=== PATIENT | male | born 1950 | race African-American/Black ===

== ENCOUNTER 2016-12-15 16:35 | Emergency (ER) | payer MEDICARE, OTHER ==
[~2016-12-15 16:35] MED LIST: ALLEGRA-D12 HOUR PO; ALLEGRA-D24 HOUR PO; AMB10 PO; ASAB PO; ATV1 PO; CREON24000 UNT PO; DIL4TAB PO; HALF81 PO; HCTZ25B PO; HYDROCHLOROT25 MG PO; KLONO1 PO; KLONO5 PO; KLONOPIN WAF0.25 MG PO; KLOR-CON 1010 MEQ PO; LEVOTHYROXIN50 MCG PO; LORCET PO; LORTAB10 PO; LOTE40 PO; LYRICA50 PO; MAGOX4 PO; METHOC750B PO; NORCO1 TA2 PO; NORCO1 TAB PO; NORV10 PO; POT GLUCONAT550 M1 OR; POT GLUCONAT550 M1 PO; POT GLUCONAT595 M1 OR; TUMSROLL PO; ULTRAM50 PO; V5 PO; VITAMIN D1000 UNI1 PO; ZENPEP5000 UNIT PO
[2016-12-15 17:03] LABS: BASOPHILS 0.5 %; BASOPHILS ABSOLUTE 0.03 10/3/uL (0.0-0.16); EOSINOPHILS 2.1 %; EOSINOPHILS ABSOLUTE 0.13 10/3/uL (0.0-0.53); ER CBC TAT 0 Hrs 05 Mins; HEMATOCRIT 40.8 % (40.0-51.0); HEMOGLOBIN 13.8 g/dL (13.6-17.8); IMMATURE GRANULOCYTES 0.2 %; IMMATURE GRANULOCYTES ABSOLUTE 0.01 10/3/uL (0.0-0.11); LYMPHOCYTES 29.8 %; LYMPHOCYTES ABSOLUTE 1.87 10/3/uL (0.67-4.30); MEAN CORPUS HGB CONC 33.8 g/dL (32.0-36.0); MEAN CORPUSCULAR HEMOGLOB 29.2 pg (26.0-34.0); MEAN CORPUSCULAR VOLUME 86.4 fL (80-100); MEAN PLATELET VOLUME 10.3 fL (9.2-13.0); MONOCYTES 7.3 %; MONOCYTES ABSOLUTE 0.46 10/3/uL (0.21-1.20); NEUTROPHILS 60.1 %; NEUTROPHILS ABSOLUTE 3.77 10/3/uL (2.02-8.40); PLATELET COUNT 217 10/3/uL (150-400); RBC DISTRIBUTION WIDTH 13.5 % (12.0-16.0); RED CELL COUNT 4.72 10/6/uL (4.7-6.1); WHITE BLOOD CELLS 6.3 10/3/uL (4.5-10.5)
[2016-12-15 17:04] LABS: MANUAL DIFF NO %
[2016-12-15 17:14] LABS: ASCORBIC ACID (UR NOT ORDER) NEG (NEG); BILIRUBIN, URINE NEGATIVE (NEG); ER URINALYSIS TAT 0 Hrs 16 Mins; KETONE, URINE NEGATIVE (NEG); LEUKOCYTE ESTERASE(NOT OR NEG (NEG); NITRITE (URINE) NEG (NEG); WBC (NOT ORDERED) (RFLEX) 2 (0-5)
[2016-12-15 17:19] LABS: A/G RATIO 0.9 (0.7-1.9); ALBUMIN 4.1 G/DL (3.5-5.0); ALKALINE PHOSPHATASE 101 U/L (45-117); BUN (BLOOD UREA NITROGEN) 19 MG/DL (6-23); CHLORIDE, SERUM 107 MMOL/L (96-112); CO2 (CARBON DIOXIDE) 24 MMOL/L (24-34); CREATININE 1.33 MG/DL (0.70-1.30); GFR AFRICAN AMERICAN 65 ML/MIN (>=60); GFR NON AFRICAN AMERICAN 56 ML/MIN (>=60); GLOBULIN 4.5 G/DL (2.5-4.1); GLUCOSE, SERUM 134 MG/DL (60-99); SGOT(AST) 23 U/L (5-40); SGPT(ALT) 36 U/L (5-65); SODIUM, SERUM 143 MMOL/L (135-148); TOTAL BILIRUBIN 0.6 MG/DL (0-1.2); TOTAL PROTEIN 8.6 G/DL (6.0-8.5)
== END 2016-12-15 18:42 | disposition home or self-care (01) ==
LOC: ER 16:35
PROVIDERS: Hospitalist
DX: S39.011A Strain of muscle, fascia and tendon of abdomen, initial encounter (principal); I10 Essential (primary) hypertension; K21.9 Gastro-esophageal reflux disease without esophagitis; Z88.0 Allergy status to penicillin; Z79.82 Long term (current) use of aspirin; Z79.899 Other long term (current) drug therapy
CPT/HCPCS: 80053; 81001; 83690; 85025; 96372; 99284; J1885